=== PATIENT | female | born 1935 | race Caucasian/White ===

== ENCOUNTER 2023-10-31 14:10 | Emergency (ER) | payer MEDICARE, OTHER, SELFPAY ==
[2023-10-31 14:14] VITALS: BP 179/89
[2023-10-31 14:34] LABS: % Basophils 0.5 % (0-2); % Eosinophils 1.1 % (0-6); % Immature Granulocytes 0.1 % (0-0.5); % Lymphocytes 19.5 % (20.5-51.1); % Monocytes 6.8 % (1.7-9.3); Absolute Basophils 0.1 10^3/uL (0-0.2); Absolute Eosinophils 0.1 10^3/uL (0-0.7); Absolute Lymphocytes 1.8 10^3/uL (1.2-3.4); Absolute Monocytes 0.6 10^3/uL (0.1-0.6); Absolute Neutrophils 6.7 10^3/uL (1.4-6.5); Hematocrit 38.5 % (37.0-47.0); Hemoglobin 13.6 g/dL (12.0-16.0); Mean Corp Hgb Conc. 35.3 g/dL (33.0-37.0); Mean Corpuscular Hgb 32.4 pg (27.0-31.0); Mean Corpuscular Volume 91.7 fL (81.0-99.0); Mean Platelet Volume 9.8 fL (7.4-10.4); Nucleated Red Blood Cells % 0 %; Platelet Count 248 10^3/uL (130-400); Red Cell Dist. Width 12.5 % (11.5-14.5); White Blood Cell Count 9.3 10^3/uL (4.8-10.8)
[2023-10-31 14:50] LABS: ALT (SGPT) 23 U/L (0-35); AST (SGOT) 25 U/L (14-36); Albumin 4.8 g/dl (3.5-5.0); Alkaline Phosphatase 47 U/L (38-126); Blood Urea Nitrogen 17 mg/dl (7-17); Calcium 9.9 mg/dl (8.4-10.2); Carbon Dioxide 26 mmol/L (22-30); Chloride 105 mmol/L (98-107); Glucose 137 mg/dl (70-99); Potassium 3.7 mmol/L (3.5-5.1); Sodium 140 mmol/L (135-145); Total Bilirubin 0.7 mg/dl (0.2-1.3); Total Protein 7.4 g/dl (6.3-8.2); eGFR > 60.00
--- NOTE | 2023-10-31 15:19 | ED.GENMED ---
History of Present Illness
General
Chief Complaint: Skin Problem
Source: patient
Exam Limitations: none
Time Seen by Provider: 10/31/23 15:07
Nursing documentation reviewed up to this point in time: agreed with
History of Present Illness
History of Present Illness:
88 y/o h/o HTN, HLD
here with a itchy rash
started as a spot in her right groin that she thought was from a bug bite 2 weeks ago
the following day she got a few red spots on the other groin
and over the past 2 weeks it has spread to in her uingal folds and mons pubis region and is very itchy
she has been trying not to scratch it
yesterday finally went to PCP who prescribed triamcinolone cream 0.1% and cephalexin 250 mg tid because one spot could have been infected in her pubic hair
today she noticed the rash spread under her right breast
she has not had any systemic symptoms, nknown objective fever/chills, nausea, vomitnig
she is prediabetic
no med changes
Past History
Past History
ED Past Medical History: HTN and Hypercholesterolemia
Review of Systems
Review of Systems
Allergies reviewed?: Yes
All Other Systems: Not applicable
Phy Exam
Physical Exam
Physical Exam:
GENERAL: Alert , in no apparent distress
ENT: o/p clr, mmm.
CARDIAC: Regular rate and rhythm .
LUNGS: Clear breath sounds bilaterally, no acute respiratory distress, no wheezes/rales/rhonchi
ABDOMEN: Soft, without focal tenderness, no r/g, no cvat, normal bowel sounds
gu: Macular rash
Inguinal folds and mons pubis that is not raised, erythematous, with 1 area in the left pubic hair region that looked slightly scaly but otherwise is not scaled, there are no raised borders, there is no central clearing, there is no weepiness
She also has a few patches under her right breast
SKIN: Warm and dry, as above
PSYCH: Normal and appropriate interaction.
Course
Orders/Labs/Results
Orders:
Orders
10/31/23 14:26
CMP [Comprehensive Metabolic Panel] Urgent
Complete Blood Count/With Diff Urgent
10/31/23 15:39
Fluconazole [Diflucan] 150 mg PO NOW STA
Abnormal Lab Results
10/31/23
14:26
MCH 32.4 H pg
(27.0-31.0)
Absolute Neuts (auto) 6.7 H 10^3/uL
(1.4-6.5)
Lymphocytes % 19.5 L %
(20.5-51.1)
Glucose 137 H mg/dl
(70-99)
10/31/23 14:26
10/31/23 14:26
Vital Signs
Initial and Last Documented VS:
Initial Vital Signs
Temp Pulse Resp BP Pulse Ox
99.3 F 93 16 179/89 97
10/31/23 14:14 10/31/23 14:14 10/31/23 14:14 10/31/23 14:14 10/31/23 14:14
Last Documented Vital Signs
Temp Pulse Resp BP Pulse Ox
99.3 F 93 16 179/89 97
10/31/23 14:14 10/31/23 14:14 10/31/23 14:14 10/31/23 14:14 10/31/23 14:14
MDM/Problems Addressed
Differential Diagnosis Includes:
Fungal/tinea curious, yeast intertrigo, cellulitis
MDM/Problems Addressed:
88-year-old female history of hypertension hyperlipidemia no new medications, prediabetic not on any medication for diabetes presents for the very itchy rash over the last 2 weeks starting in her right inguinal region and spreading along her
inguinal folds and over her mons pubis region. It does not extend within her vagina. She went to her family doctor yesterday who prescribed her topical steroid triamcinolone 0.1% as well as cephalexin in case she was getting an infection. Patient
is not had any systemic symptoms. She is here today because she noticed a few patches underneath her right breast and feels like it is getting worse. She has not taken anything for the itch. She has no pain, dysuria, oral rash
Her has no complaints
On exam the patient is afebrile, well-appearing, she has a
Patch like rash in her skin folds of her inguinal regions as well as extending over her mons pubis coalescent, there few satellite looking lesions in her upper thighs bilaterally, and a few patches under her right breast. It does cross the midline
, There is no obvious induration or abscess, she has no scales. Patient has only been on therapy for 1 day but I suspect this may be more fungal and require an antifungal plus the topical steroid as well as continuing the Keflex as her physician
prescribed though this is probably not overly helpful. Patient's labs are reassuring, her glucose is 137 and her white count is normal
*Critical Care Note
Total Time (30-74mins, 75-104mins- exclusive of procedures): Not Applicable
ED Attending Note
-
Portions of this chart may have been created with voice recognition software.� Occasional wrong word or��sound alike� substitutions may have occurred due to the inherent limitations of voice recognition software.
Discharge Plan
Departure
Patient Disposition: Home (Routine Discharge)
Date of Disposition: 10/31/23
Time of Disposition: 15:28
Patient with high blood pressure during this ER visit?: Yes
Covid-19: Not Applicable
Discharge Problem:
Tinea cruris
Instructions: Fungal Skin Rash (DC), BLOOD PRESSURE
Prescriptions:
New
nystatin-triamcinolone 100,000-0.1 unit/gram-% ointment
1 applic topical BID 7 Days Qty: 60 0RF
Referrals:
Caren Huang, [Family Provider] -
Activity Restrictions/Additional Instructions:
We gave you a dose of Diflucan in the emergency department and prescribed topical fungal cream which you can use instead of the triamcinolone cream. You should follow-up with a ex assistant/program director in the next week if this does not clear up. Your blood
work was reassuring. Return for worsening symptoms like rigors or fever, pain, systemic symptoms, trouble breathing or any concerns remember you can take Benadryl for itching as needed every 8 hours
Interventions
Interventions:
*Risk Screen - Suicide Last Done: 10/31/23 14:57
*General Assessment Last Done: 10/31/23 14:57
*Neglect/Abuse Screening Last Done: 10/31/23 14:57
ED-Skin Assessment Last Done: 10/31/23 14:57
Discharge Date and Time
Print Language: NAURUAN
[2023-10-31 15:38] VITALS: BMI 30.9
[2023-10-31 15:49] VITALS: BP 180/78
[2023-10-31] MEDS: DIFLUCAN 150 MG PO (15:55)
[2023-10-31 16:00] VITALS: BP 180/78
== END 2023-10-31 16:01 | disposition home or self-care (01) ==
LOC: EMR 14:10
PROVIDERS: Emergency Medicine; EMERGENCY PHYSICIAN Emergency Medicine; FAMILY PHYSICIAN Family Medicine
DX: B35.6 Tinea cruris (principal); R21 Rash and other nonspecific skin eruption; I10 Essential (primary) hypertension; E78.00 Pure hypercholesterolemia, unspecified
CPT/HCPCS: 99283; 80053; 85025